=== PATIENT | female | born 1950 | race Caucasian/White ===

== ENCOUNTER 2017-07-30 08:16 | Emergency (ER) | payer OTHER ==
[~2017-07-30] VITALS: Ht 172.7 cm; Wt 80.0 kg
[~2017-07-30 08:16] MED LIST: ANAS1 PO; PAXI20TA26 PO
[2017-07-30 08:18] VITALS: BP 132/65; PULSE 89; RESP 17; TEMP 97.7; O2SAT 97
--- NOTE | 2017-07-30 08:41 | PD ---
HPI Chief Complaint: Abdominal Pain Time Seen by Provider: 08:40 Travel History International Travel<30 days: No Contact w/Intl Traveler<30days: No Traveled to known affect area: No History of Present Illness HPI 67-year-old female came to the emergency room with history of sudden onset of right sided chest pain going across her chest while she was in the waiting room to see an orthopedist for her left lower extremity pathologic fracture. Patient says this happened at around 7:40 AM and while she was sitting and waiting she suddenly got this dull chest pain sensation followed by intense perspiration and extreme weakness. This led to the staff in the office called 911. Patient says she never passed out. Her vital signs were stable on route. By the time she came to the emergency room she was soaking wet from the sweat but the chest pain had gone away. Patient says she's never had this kind of feeling before. She has history of breast cancer that has metastasized to the bones. He is getting daily chemotherapy that she takes in the form of a pill at home. There were blood test done and most of the results were back by the time I went to see her. Her CBC was within normal limits. Patient had gone to the restroom when I arrived in the room but then was coming out of there so I waited for her to get back to her room in the stretcher. During the short walk off maybe 30 steps she got short of breath and her color was pale. Upon hooking up to the monitor her heart rate was in 100s. Oxygen saturation was 94- 95%. This slowly started to improve as she was more restful on the stretcher. Patient says that she has been experiencing that for past couple days as well. She says that when she was walking she experienced the chest pain coming back but not as intense. [facility] Past Medical History Narrative Medical List of her past medical, surgical, social and family history is reviewed from the nursing note. Cancer: Yes (LEFT BREAST) Diabetes: No Glaucoma: Yes (ASHLEE.) Hepatitis: No Hiatal Hernia: No Hypertension: No Thyroid Disease: No Past Surgical History Abdominal Surgery: No Cardiac Surgery: No Ear Surgery: No Endocrine Surgery: No Eye Surgery: No Genitourinary Surgery: No Gynecologic Surgery: Yes (LAPAROSCOPY) Oral Surgery: Yes (EXTRACTIONS, T & A) Pacemaker: No Social History Alcohol Use: Yes (OCCAS) Tobacco Use: No Allergies-Medications (Allergen,Severity, Reaction): Coded Allergies: codeine (Verified Allergy, Severe, Rash, 07/30/17) Comments List of her allergies reviewed from the nursing note. Reported Meds & Prescriptions Reported Meds & Active Scripts Active Reported Dorzolamide Opth Drops (Dorzolamide HCl) 2% Soln 1 Drop EACH EYE TID Timoptic Opth Drops (Timolol Opth Drops) 0.25 % Soln 1 Drop EACH EYE BID Latanoprost Opth Drops (Latanoprost) 0.005% Drops 1 Drop EACH EYE HS Refrigerate until opened. Paxil (Paroxetine HCl) 10 Mg Tab 20 Mg PO DAILY Hydromorphone (Hydromorphone HCl) 2 Mg Tab 2 Mg PO BID PRN Letrozole 2.5 Mg Tab 1 Tab PO DAILY Ibrance (Palbociclib) 75 Mg Capsule 1 Tab PO DAILY Narrative Medication List of her home medications reviewed from the nursing note. Review of Systems Except as stated in HPI: all other systems reviewed are Neg Cardiovascular: Positive: Chest Pain or Discomfort Physical Exam Narrative GENERAL: Awake, alert, looks older than her age, moderate distress SKIN: Focused skin assessment warm/dry. Pale HEAD: Atraumatic. Normocephalic. EYES: Pupils equal and round. No scleral icterus. No injection or drainage. ENT: No nasal bleeding or discharge. Mucous membranes pink and moist. NECK: Trachea midline. No JVD. CARDIOVASCULAR: Regular rate and rhythm. No murmur appreciated. RESPIRATORY: No accessory muscle use. Clear to auscultation. Breath sounds equal bilaterally. GASTROINTESTINAL: Abdomen soft, non-tender, nondistended. Hepatic and splenic margins not palpable. MUSCULOSKELETAL: No obvious deformities. No clubbing. No cyanosis. No edema. NEUROLOGICAL: Awake and alert. No obvious cranial nerve deficits. Motor grossly within normal limits. Normal speech. PSYCHIATRIC: Appropriate mood and affect; insight and judgment normal. Data Data Last Documented VS Orders Orders Electrocardiogram (07/30/17 09:36) Complete Blood Count With Diff (07/30/17 09:36) Comprehensive Metabolic Panel (07/30/17 09:36) Iv Access Insert/Monitor (07/30/17 09:36) Blood Glucose (07/30/17 09:36) Ct Brain W/O Iv Contrast(Rout) (07/30/17 ) Troponin I (07/30/17 10:27) Chest, Single Ap (07/30/17 ) Labs Laboratory Tests Test 07/30/17 09:40 White Blood Count 4.2 TH/MM3 Red Blood Count 4.27 MIL/MM3 Hemoglobin 12.7 GM/DL Hematocrit 38.6 % Mean Corpuscular Volume 90.4 FL Mean Corpuscular Hemoglobin 29.7 PG Mean Corpuscular Hemoglobin Concent 32.9 % Red Cell Distribution Width 20.8 % Platelet Count 278 TH/MM3 Mean Platelet Volume 8.0 FL Neutrophils (%) (Auto) 67.9 % Lymphocytes (%) (Auto) 22.7 % Monocytes (%) (Auto) 3.1 % Eosinophils (%) (Auto) 4.1 % Basophils (%) (Auto) 2.2 % Neutrophils # (Auto) 2.8 TH/MM3 Lymphocytes # (Auto) 0.9 TH/MM3 Monocytes # (Auto) 0.1 TH/MM3 Eosinophils # (Auto) 0.2 TH/MM3 Basophils # (Auto) 0.1 TH/MM3 CBC Comment DIFF FINAL Differential Comment Blood Urea Nitrogen 19 MG/DL Creatinine 0.90 MG/DL Random Glucose 105 MG/DL Total Protein 7.5 GM/DL Albumin 3.5 GM/DL Calcium Level 8.7 MG/DL Alkaline Phosphatase 284 U/L Aspartate Amino Transf (AST/SGOT) 97 U/L Alanine Aminotransferase (ALT/SGPT) 74 U/L Total Bilirubin 0.4 MG/DL Sodium Level 140 MEQ/L Potassium Level 3.8 MEQ/L Chloride Level 111 MEQ/L Carbon Dioxide Level 23.2 MEQ/L Anion Gap 6 MEQ/L Estimat Glomerular Filtration Rate 62 ML/MIN Troponin I LESS THAN 0.02 NG/ML MDM Medical Decision Making Medical Screen Exam Complete: Yes Emergency Medical Condition: Yes Medical Record Reviewed: Yes Interpretation(s) Twelve-lead EKG was reviewed by me. Normal sinus rhythm, normal axis, nonspecific ST-T wave changes. Heart rate of 89 bpm. Differential Diagnosis ACS, non-STEMI, unstable angina, PE, CHF, pneumonia Narrative Course 12 PM chemistry result is back and within acceptable limits grossly. I explained my concerns to the patient may need a cardiac until proven otherwise. In my opinion patient may have been having stable angina, malignant arrhythmias like V. tach or even a PE. I explained to her that she would require to be admitted so that she can be seen by cardiology. 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 I explained to her that given her symptoms this would be risky and if she wants to leave it would be against medical advise. She understands the risks including . Patient is in full capacity to make decisions for herself and has chosen to go home. He will sign against medical advise. Procedures EKG Prior to Arrival: No Diagnosis Primary Impression: Chest pain Qualified Codes: R07.9 - Chest pain, unspecified Additional Impressions: Weakness Shortness of breath Disposition: 07 AGAINST MEDICAL ADVICE Fátima Chavez MD Jul 30, 2017 08:41
[2017-07-30] MEDS ORDERED: LETR2.5T PO (08:46)
[2017-07-30] MEDS ORDERED: PALB75CA PO (08:46)
[2017-07-30] MEDS ORDERED: LATA0.002 EACH EYE (08:50)
[2017-07-30] MEDS ORDERED: DORZ2SOL EACH EYE (08:50)
[2017-07-30] MEDS ORDERED: PAXI10TA2 PO (08:50)
[2017-07-30] MEDS ORDERED: TIMO0.255 EACH EYE (08:50)
[2017-07-30] MEDS ORDERED: HYDR2TAB PO (08:50)
[2017-07-30 10:04] LABS: AUTOMATED NEUTROPHIL # 2.8 TH/MM3 (1.8-7.7); BASOPHIL # 0.1 TH/MM3 (0-0.2); BASOPHIL % 2.2 % (0.0-2.0); EOSINOPHIL # 0.2 TH/MM3 (0-0.4); EOSINOPHIL % 4.1 % (0.0-4.0); HEMATOCRIT 38.6 % (35.0-46.0); HEMO FLAGS DIFF FINAL; LYMPH % 22.7 % (9.0-44.0); LYMPHOCYTE # 0.9 TH/MM3 (1.0-4.8); MEAN CELL VOLUME 90.4 FL (80.0-100.0); MEAN CORPUSCULAR HEMOGLOBIN 29.7 PG (27.0-34.0); MEAN CORPUSCULAR HGB CONC 32.9 % (32.0-36.0); MONO % 3.1 % (0.0-8.0); NEUT % 67.9 % (16.0-70.0); PLATELET COUNT 278 TH/MM3 (150-450); RED BLOOD COUNT 4.27 MIL/MM3 (4.00-5.30); RED CELL DISTRIBUTION WIDTH 20.8 % (11.6-17.2); WHITE BLOOD COUNT 4.2 TH/MM3 (4.0-11.0)
[2017-07-30 10:28] LABS: ALKALINE PHOSPHATASE 284 U/L (45-117); TOTAL BILIRUBIN ADULT 0.4 MG/DL (0.2-1.0)
[2017-07-30 10:37] LABS: ALT (GPT) 74 U/L (10-53); ANION GAP 6 MEQ/L (5-15); AST (GOT) 97 U/L (15-37); BICARBONATE 23.2 MEQ/L (21.0-32.0); BLOOD UREA NITROGEN 19 MG/DL (7-18); CHLORIDE 111 MEQ/L (98-107); GLOMERULAR FILTRATION RATE 62 ML/MIN (>89); POTASSIUM 3.8 MEQ/L (3.5-5.1); SODIUM (NA) 140 MEQ/L (136-145)
--- NOTE | 2017-07-30 10:59 | RADRPT ---
EXAM DATE/TIME: 07/30/2017 10:32 [facility] COMPARISON: No previous studies available for comparison. INDICATIONS : Sudden onset of nausea and vomiting. RADIATION DOSE: 56.35 CTDIvol (mGy) MEDICAL HISTORY : Carcinoma, breast. Metastatic, bone. SURGICAL HISTORY : Mastectomy, bilateral. ENCOUNTER: Initial ACUITY: 1 day PAIN SCALE: 0/10 LOCATION: cranial TECHNIQUE: Multiple contiguous axial images were obtained of the head. Using automated exposure control and adj ustment of the mA and/or kV according to patient size, radiation dose was kept as low as reasonably a chievable to obtain optimal diagnostic quality images. DICOM format image data is available electro nically for review and comparison. FINDINGS: CEREBRUM: The ventricles are normal for age. No evidence of midline shift, mass lesion, hemorrhage or acute in farction. Incidental finding of a cavum septum Verge. No extra-axial fluid collections are seen. POSTERIOR FOSSA: The cerebellum and brainstem are intact. The 4th ventricle is midline. The cerebellopontine angle i s unremarkable. EXTRACRANIAL: The visualized portion of the orbits is intact. SKULL: The calvaria is intact. No evidence of skull fracture. CONCLUSION: Normal examination for a patient of this age. Aniket Pollock MD on July 30, 2017 at 10:56 Board Certified Radiologist. This report was verified electronically.
[2017-07-30 11:10] VITALS: BP 112/64; PULSE 89; RESP 16; O2SAT 97
--- NOTE | 2017-07-30 11:34 | RADRPT ---
EXAM DATE/TIME: 07/30/2017 11:14 [facility] COMPARISON: No previous studies available for comparison. INDICATIONS : Went to orthopedic doctor today and started sweating real bad. MEDICAL HISTORY : metastatic disease per friend SURGICAL HISTORY : breast removed 2007, breast cancer info provided by friend ENCOUNTER: Initial ACUITY: 1 day PAIN SCORE: 0/10 LOCATION: Bilateral chest FINDINGS: A single view of the chest demonstrates the lungs to be symmetrically aerated without evidence of mas s, infiltrate or effusion. Lungs are hyperaerated bilaterally. There are some chronic interstitial ch anges bilaterally. The cardiomediastinal contours are unremarkable. Osseous structures are intact. T here are degenerative changes of the thoracic spine. CONCLUSION: No acute pulmonary infiltrates. Aniket Pollock MD on July 30, 2017 at 11:31 Board Certified Radiologist. This report was verified electronically.
--- NOTE | 2017-07-31 22:03 | EKG ---
Date Performed: 07/30/2017 Time Performed: 09:54:20 PTAGE: 67 years EKG: Sinus rhythm NORMAL ECG NO PREVIOUS TRACING DOCTOR: Avery Peterson Interpretating Date/Time 07/31/2017 21:45:05
== END 2017-07-30 11:30 | disposition left against medical advice (07) ==
LOC: NEPE 08:16
DX: R07.9 Chest pain, unspecified (principal); R53.1 Weakness; R06.02 Shortness of breath; R61 Generalized hyperhidrosis; R23.1 Pallor; R00.0 Tachycardia, unspecified; Z85.3 Personal history of malignant neoplasm of breast; Z86.69 Personal history of other diseases of the nervous system and sense organs; Z53.29 Procedure and treatment not carried out because of patient's decision for other reasons
CPT/HCPCS: 70450; 71010; 80053; 84484; 85025; 93005

== ENCOUNTER 2018-12-07 17:28 | Observation (INO) ==
[2018-12-07 19:07] LABS: Baso % (Auto) 0.8 % (0.0-2.0); Eos % (Auto) 2.1 % (0.0-4.0); Hematocrit 25.7 % (35.0-46.0); Hemoglobin 8.5 gm/dL (11.6-15.3); Lymph # (Auto) 0.8 th/mm3 (1.0-4.8); Lymph % (Auto) 39.4 % (9.0-44.0); Mean Corpuscular Hemoglobin 29.9 pg (27.0-34.0); Mean Corpuscular Volume 90.5 fL (80.0-100.0); Mono # (Auto) 0.2 th/mm3 (0.0-0.9); Mono % (Auto) 7.4 % (0.0-8.0); Neut # (Auto) 1.1 th/mm3 (1.8-7.7); Neut % (Auto) 50.3 % (16.0-70.0); Platelet Count 157 th/mm3 (150-450); Red Blood Count 2.84 mil/mm3 (4.00-5.30); Red Cell Distribution Width 15.5 % (11.6-17.2); White Blood Count 2.1 th/mm3 (4.0-11.0)
[2018-12-07 19:15] LABS: Chloride 107 meq/L (98-107); Sodium 139 meq/L (136-145)
--- NOTE | 2018-12-07 19:16 | XR ---
EXAM DATE: 12/07/2018 7:13 PM EST AGE/SEX: 68 years / Female INDICATIONS: AMS. Patient states she has metastatic breast cancer. CLINICAL DATA: This is the patient's initial encounter. Patient reports that signs and symptoms have been present for 1 day and indicates a pain score of 0/10. MEDICAL/SURGICAL HISTORY: . metastatic disease per friend SURGICAL HISTORY : breast removed 200 8, breast cancer info provided by friend . COMPARISON: No prior exams available for comparison. FINDINGS: Sclerotic-appearing bony metastases are seen throughout the axial and appendicular skeleton consisten t with the history. The heart is enlarged Mild interstitial edema is present. Minimal angulation is present at T8-T9 of uncertain significance. CONCLUSION: Apparent metastatic breast cancer with widespread bony metastases as patient states Mild compensated cardiomegaly Electronically signed by: Josue Daniel MD Board Certified Radiologist 12/07/2018 7:15 PM EST
[2018-12-07 19:18] LABS: Calcium 8.1 mg/dL (8.5-10.1)
--- NOTE | 2018-12-07 19:18 | ED ---
HPI General Chief Complaint: Altered Mental Status Stated Complaint: AMS Time Seen by Provider: 12/07/18 17:56 Source: patient History of Present Illness HPI narrative: 68-year-old female with a history of metastatic breast cancer stage IV presents to the emergency room with altered mental status for the last 2 days. Patient has started oral chemotherapy. Patient noticed slurring of speech general, generalized weakness, nausea,and muscle aches. Patient denies fever, chills, vomiting, diarrhea, abdominal pain, shortness of breath or chest pain. Patient does not recall the name of the chemotherapy medications. Related Data Home Medications Medication Instructions Recorded Confirmed Chemo Med 2 tab PO BID 12/07/18 diazepam [Valium] 10 mg PO HS 12/07/18 12/07/18 hydromorphone 2 mg PO Q4-6H PRN 12/07/18 12/07/18 ibuprofen [Advil] 200 mg PO HS 12/07/18 12/07/18 Allergies Allergy/AdvReac Type Severity Reaction Status Date / Time codeine Allergy Severe Rash Verified 12/07/18 17:41 Review of Systems ROS: all other systems reviewed are negative Constitutional Reports body ache(s), Reports malaise, Reports poor appetite and Reports weight loss Neurologic Reports weakness PMFSH Medical History Medical History Anxiety (Acute) Arm fracture, left (Acute) Metastatic breast cancer (Acute) Surgical History Surgical History H/O bilateral mastectomy (Acute) Hx of tonsillectomy (Acute) Social History Social History Substance History: No History of Abuse Smoking Status: Former smoker How Often Do You Have a Drink Containing Alcohol: Never Recent Out of Country Travel within the Last 8 Weeks: No Immunization History Tetanus Immunization: Unsure Exam Narrative Exam Narrative: GENERAL: Patient is alert and oriented -3 SKIN: Focused skin assessment warm/dry. HEAD: Atraumatic. Normocephalic. EYES: Pupils equal and round. No scleral icterus. No injection or drainage. ENT: No nasal bleeding or discharge. Mucous membranes pink and moist. NECK: Trachea midline. No JVD. CARDIOVASCULAR: Regular rate and rhythm. No murmur appreciated. RESPIRATORY: No accessory muscle use. Clear to auscultation. Breath sounds equal bilaterally. GASTROINTESTINAL: Abdomen soft, non-tender, nondistended. Hepatic and splenic margins not palpable. MUSCULOSKELETAL: No obvious deformities. No clubbing. No cyanosis. No edema. Generalized bone tenderness to palpation NEUROLOGICAL: Awake and alert. No obvious cranial nerve deficits. Motor grossly within normal limits. Normal speech. PSYCHIATRIC: Appropriate mood and affect; insight and judgment normal. Course Initial Documented Vital Signs Temperature 98.8 F 12/07/18 17:36 Pulse Rate 84 12/07/18 17:36 Respiratory Rate 18 12/07/18 17:36 Blood Pressure 131/60 12/07/18 17:36 Pulse Oximetry 98 12/07/18 17:36 Last Documented Vital Signs Temperature 98.8 F 12/07/18 17:36 Pulse Rate 84 12/07/18 17:36 Respiratory Rate 18 12/07/18 17:36 Blood Pressure 131/60 12/07/18 17:36 Pulse Oximetry 98 12/07/18 17:36 Sign Out Sign Out Data: Patient Sign Out occurred on 12/07/18 at 19:20. Patient's care was discussed, and care was transferred from Johnie Samano to William Avery. Sign Out Comment: Please follow-up labs, chest x-ray, CAT scan results Last updated by Johnie Samano at 12/07/18 19:18 Post-Handoff Eval: Patient has leukopenia 2.1 anemia of 8.5/25.7 both of these are decreased from the previous July 2017 laboratory value of a WBC of 4.2 and an H&H of 12/38 No left shift, normal platelet count Elect lites are within normal limits Normal kidney and liver functions Normal cardiac enzyme , Mild compensated cardiomegaly. Chest x-ray read by radiologist shows apparent metastatic breast cancer with widespread bony metastasis CT head read as negative by radiology, MRI with contrast could be used to exclude subtle metastasis versus carcinoma related meningitis currently awaiting ammonia and ua results....patient is admitted as obs for MRI and further studies to evaluate her recent change in sensorium. pcp is aniadasama and sorathia is heme-onc Medical Decision Making MDM Narrative Medical Screen Exam Complete: Yes Emergency Medical Condition: Yes Lab Data Lab results reviewed: Yes I reviewed the patient's lab results. Result diagrams: 12/07/18 18:20 12/07/18 18:20 Lab Results 02/26/19 02/26/19 Range/Units 18:20 18:20 CBC w Diff Auto diff final WBC 2.1 L (4.0-11.0) th/mm3 RBC 2.84 L (4.00-5.30) mil/mm3 Hgb 8.5 L (11.6-15.3) gm/dL Hct 25.7 L (35.0-46.0) % MCV 90.5 (80.0-100.0) fL MCH 29.9 (27.0-34.0) pg MCHC 33.0 (32.0-36.0) % RDW 15.5 (11.6-17.2) % Plt Count 157 (150-450) th/mm3 MPV 7.0 (7.0-11.0) fL Neut % (Auto) 50.3 (16.0-70.0) % Lymph % (Auto) 39.4 (9.0-44.0) % [place] % (Auto) 7.4 (0.0-8.0) % Eos % (Auto) 2.1 (0.0-4.0) % Baso % (Auto) 0.8 (0.0-2.0) % Neut # (Auto) 1.1 L (1.8-7.7) th/mm3 Lymph # (Auto) 0.8 L (1.0-4.8) th/mm3 [place] # (Auto) 0.2 (0.0-0.9) th/mm3 Eos # (Auto) 0.0 (0.0-0.4) th/mm3 Baso # (Auto) 0.0 (0.0-0.2) th/mm3 WBC Differential . Differential Comment . Sodium 139 (136-145) meq/L Potassium 4.0 (3.5-5.1) meq/L Chloride 107 (98-107) meq/L Carbon Dioxide 27.2 (21.0-32.0) meq/L Anion Gap 5 (5-15) meq/L BUN 19 H (7-18) mg/dL Creatinine 0.96 (0.50-1.00) mg/dL Estimated GFR 57 L (>89) mL/min Random Glucose 109 H (74-106) mg/dL Calcium 8.1 L (8.5-10.1) mg/dL Magnesium 2.5 (1.5-2.5) mg/dL Total Bilirubin 0.3 (0.2-1.0) mg/dL AST 48 H (15-37) U/L ALT 15 (10-53) U/L Alkaline Phosphatase 117 (45-117) U/L Troponin I Less than 0.02 L (0.02-0.05) ng/mL Total Protein 6.9 (6.4-8.2) g/dL Albumin 3.6 (3.4-5.0) g/dL Imaging Data Attestation: I personally reviewed and interpreted this imaging study as follows : Radiologist's impression: Chest X-Ray 12/07/18 18:36 CONCLUSION: Apparent metastatic breast cancer with widespread bony metastases as patient states Mild compensated cardiomegaly Head CT 12/07/18 18:36 CONCLUSION: 1. Negative, chest x-ray shows widespread bony metastatic disease 2. MRI with contrast could be used to exclude subtle metastasis and carcinomas meningitis . . Discharge Plan Discharge Disposition Patient Disposition: ED Admit(ED Internal Use Only) Discharge Condition Condition: Fair Discharge Order Discharge Orders: ED Use Only Admit Order (Routine); Ordered 12/07/18 Ordered By: William Avery Discharge Details Diagnosis: Altered mental status Physicians Team ED Provider: William Avery Primary Care Provider: UNKNOWN, Rxs /Orders / Referrals /Forms Prescriptions: No Action hydromorphone 2 mg Tablet 2 mg PO Q4-6H PRN (Reason: Pain) RF: 0 ibuprofen [Advil] 100 mg Tablet 200 mg PO HS RF: 0 diazepam [Valium] 10 mg Tablet 10 mg PO HS RF: 0 Chemo Med 2 tab PO BID RF: 0 Status ED Status: With Doctor
[2018-12-07 19:19] LABS: Albumin 3.6 g/dL (3.4-5.0); Anion Gap 5 meq/L (5-15); Blood Urea Nitrogen 19 mg/dL (7-18); Carbon Dioxide 27.2 meq/L (21.0-32.0); Glucose,Random 109 mg/dL (74-106); Magnesium 2.5 mg/dL (1.5-2.5)
--- NOTE | 2018-12-07 19:19 | CT ---
EXAM DATE: 12/07/2018 7:16 PM EST AGE/SEX: 68 years / Female INDICATIONS: Altered mental status. Weakness. Confusion. CLINICAL DATA: This is the patient's initial encounter. Patient reports that signs and symptoms have been present for 1 day and indicates a pain score of 0/10. MEDICAL/SURGICAL HISTORY: Carcinoma, breast. Mastectomy, bilateral. Tonsillectomy. RADIATION DOSE: 59.47 CTDI (mGy) COMPARISON: [facility], CHEST 1V SINGLE AP, 12/07/2018. . TECHNIQUE: CT of the head without contrast. Using automated exposure control and adjustment of the mA and/or kV according to patient size, radiation dose was kept as low as reasonably achievable to ob tain optimal diagnostic quality images. DICOM format image data is available electronically for revi ew and comparison. FINDINGS: Cerebrum: The ventricles are normal for age. No evidence of midline shift, mass lesion, hemorrhage or acute infarction. No extraaxial fluid collections are seen. Posterior Fossa: The cerebellum and brainstem are intact. The 4th ventricle is midline. The cerebe llopontine angle is unremarkable. Extracranial: The visualized portion of the orbits is intact. Skull: The calvaria is intact. No evidence of skull fracture. CONCLUSION: 1. Negative, chest x-ray shows widespread bony metastatic disease 2. MRI with contrast could be used to exclude subtle metastasis and carcinomas meningitis . . Electronically signed by: Josue Daniel MD Board Certified Radiologist 12/07/2018 7:18 PM EST
[2018-12-07 19:22] LABS: Alanine Aminotransferase 15 U/L (10-53); Aspartate Aminotransferase 48 U/L (15-37); Glomerular Filtration Rate 57 mL/min (>89)
[2018-12-07 19:24] LABS: Total Protein 6.9 g/dL (6.4-8.2)
[2018-12-07 19:25] LABS: Alkaline Phosphatase 117 U/L (45-117)
[2018-12-07] MEDS ORDERED: Acetaminophen 325 MG Tablet PO PRN (20:07)
[2018-12-07] MEDS ORDERED: Bisacodyl 10 MG Supp RECTAL PRN (20:07)
[2018-12-07 20:55] LABS: Bilirubin,Urine Negative (Negative); Clarity,Urine Clear (Clear); Color,Urine Yellow (Yellw/Straw); Glucose,Urine (UA) Negative (Negative); Leukocyte Esterase,Urine Small (Negative); Nitrite,Urine Negative (Negative); Urobilinogen,Urine 0.2 mg/dL (Less than 2)
[2018-12-07 21:02] LABS: RBC,Urine 0-3 /hpf (0-3); Squamous Epithelial Cell,Urine 0-5 /hpf (0-5)
[2018-12-07] MEDS: Sod Chloride 0.9% Inj 1,000 ML IV.CONT SCH (21:52)
[2018-12-08 08:21] LABS: Baso % (Auto) 1.6 % (0.0-2.0); Eos # (Auto) 0.1 th/mm3 (0.0-0.4); Eos % (Auto) 2.4 % (0.0-4.0); Hematocrit 27.8 % (35.0-46.0); Hemoglobin 9.2 gm/dL (11.6-15.3); Lymph # (Auto) 0.8 th/mm3 (1.0-4.8); Lymph % (Auto) 37.5 % (9.0-44.0); Mean Corpuscular Hemoglobin 30.2 pg (27.0-34.0); Mean Corpuscular Volume 91.6 fL (80.0-100.0); Mean Platelet Volume 7.2 fL (7.0-11.0); Mono # (Auto) 0.1 th/mm3 (0.0-0.9); Mono % (Auto) 6.4 % (0.0-8.0); Neut # (Auto) 1.2 th/mm3 (1.8-7.7); Neut % (Auto) 52.1 % (16.0-70.0); Platelet Count 173 th/mm3 (150-450); Red Blood Count 3.04 mil/mm3 (4.00-5.30); Red Cell Distribution Width 15.2 % (11.6-17.2); White Blood Count 2.2 th/mm3 (4.0-11.0)
[2018-12-08 08:35] LABS: Chloride 109 meq/L (98-107); Potassium 4.1 meq/L (3.5-5.1); Sodium 141 meq/L (136-145)
[2018-12-08 08:38] LABS: Albumin 3.7 g/dL (3.4-5.0); Anion Gap 5 meq/L (5-15); Blood Urea Nitrogen 16 mg/dL (7-18); Calcium 8.2 mg/dL (8.5-10.1); Carbon Dioxide 27.3 meq/L (21.0-32.0); Glucose,Random 91 mg/dL (74-106)
[2018-12-08 08:41] LABS: Alanine Aminotransferase 12 U/L (10-53); Aspartate Aminotransferase 50 U/L (15-37); Glomerular Filtration Rate 64 mL/min (>89)
[2018-12-08 08:43] LABS: Total Protein 7.1 g/dL (6.4-8.2)
[2018-12-08 08:44] LABS: Alkaline Phosphatase 92 U/L (45-117)
[2018-12-08] MEDS: Sod Chloride 0.9% Inj 1,000 ML IV.CONT SCH (11:28)
[2018-12-08 11:36] VITALS: RESP 18
[2018-12-08] MEDS ORDERED: Gadobutrol PF 7.5 MMOL/7.5 ML Vial (for RAD) IV.SIG ONE (11:58)
--- NOTE | 2018-12-08 12:37 | MR ---
EXAM DATE: 12/08/2018 12:09 PM EST AGE/SEX: 68 years / Female INDICATIONS: Metastatic disease. Dizziness and confusion. CLINICAL DATA: This is the patient's initial encounter. Patient reports that signs and symptoms have been present for 1 day and indicates a pain score of 0/10. MEDICAL/SURGICAL HISTORY: Carcinoma, breast. Mastectomy, bilateral. Tonsillectomy. COMPARISON: [facility], CT HEAD W/O CONTRAST, 12/07/2018. . TECHNIQUE: Multiplanar, multisequence examination of the brain was performed without and with 7.5 ml Gadavist (gadobutrol) contrast as a single exam dose. FINDINGS: Cerebrum: The ventricles are normal for age. No evidence of midline shift, mass lesion, hemorrhage or acute infarction. No extraaxial fluid collections are seen. The pituitary gland and suprasellar cistern are normal in configuration. White Matter: No significant signal abnormalities are seen in the white matter. Posterior Fossa: The cerebellum and brainstem are intact. The 4th ventricle is midline. The cerebel lopontine angle is unremarkable. The cerebellar tonsils are normal in position. Diffusion Imaging: No focal areas of restricted diffusion are seen. No evidence of acute infarction . Extracranial: The visualized portions of the orbits and paranasal sinuses are unremarkable. Post Contrast: A few scattered calvarial and meningeal based areas of enhancement are seen bilateral ly, right greater than left. The largest of these is seen in the anterior high right parietal convexi ty measuring 1.1 cm in diameter. CONCLUSION: 1. Multiple enhancing calvarial-based lesions in the skull are concerning for osseous metastasis. Th ere may be some meningeal extension on the right. 2. No evidence of metastatic disease to the brain, however. Electronically signed by: Moshe Graham MD Board Certified Radiologist 12/08/2018 12:36 PM EST
[2018-12-08 12:55] VITALS: BP 99/64; PULSE 91; TEMP 96.2; O2SAT 97
--- NOTE | 2018-12-08 13:17 | P.HPIM ---
History of Present Illness Primary Care Physician: UNKNOWN History of Present Illness: 68-year-old white female was admitted for possible strokelike symptoms. Patient was in her USOH until about 2-3 weeks ago when she began having intermittent slurring of her speech and balance issues. This has been of a gradual onset. Has been recently taking His capecitabine for breast cancer. Being yesterday the patient got a follow-up phone call from her pharmacy/pharm company asking her about her overall clinical status. Upon hearing the issues of speech and balance disturbances she was advised to proceed to the ER. Otherwise the patient says she feels fine and is eager to go home as soon as possible. In the ED CT of the head was negative for acute findings. Blood work from revealed unremarkable chemistry, CBC was also unremarkable for any acute changes. Chest x-ray which I independently reviewed was negative for any acute infiltrates. Radiology had recommended an MRI with contrast to differentiate between carcinomatosis and subtle metastasis. Vital signs stable. Review of Systems Review of Systems: all other systems reviewed are negative [facility]LY [facility] Medical History Medical History Anxiety (Acute) Arm fracture, left (Acute) Metastatic breast cancer (Acute) Surgical History Surgical History H/O bilateral mastectomy (Acute) Hx of tonsillectomy (Acute) Family History Family History Other Pancreatic cancer Social History Social History Substance History: No History of Abuse Second Hand Smoke Exposure: No Smoking Status: Never smoker How Often Do You Have a Drink Containing Alcohol: Never Immunization History Tetanus Immunization: Unsure Medications and Allergies Allergies Allergy/AdvReac Type Severity Reaction Status Date / Time codeine Allergy Severe Rash Verified 12/07/18 17:41 Home Medications Medication Instructions Recorded Confirmed Type capecitabine 1,000 mg PO Q12H 12/07/18 12/07/18 History diazepam [Valium] 10 mg PO HS 12/07/18 12/07/18 History hydromorphone 2 mg PO Q4-6H PRN 12/07/18 12/07/18 History ibuprofen [Advil] 200 mg PO HS 12/07/18 12/07/18 History paroxetine HCl 20 mg PO DAILY 12/07/18 12/07/18 History Active Medications: Active Medications Acetaminophen (Tylenol) 650 mg PO Q4H PRN PRN Reason: Temp > 100.4 Al Hydroxide/Mg Hydroxide (Milk Of Magnesia Liq) 30 ml PO Q12H PRN PRN Reason: Mild Constipation Bisacodyl (Dulcolax Supp) 10 mg RECTAL DAILY PRN PRN Reason: SEVERE CONSITIPATION Sodium Chloride (Ns Inj) 1,000 mls @ 75 mls/hr IV.CONT .[id number] [facility] Last Infusion: 12/08/18 11:28 Dose: Infused Lactulose (Lactulose Liq) 30 ml PO DAILY PRN PRN Reason: SEVERE CONSITIPATION Ondansetron HCl (Zofran Inj) 4 mg IV.PUSH Q6H PRN PRN Reason: NAUSEA OR VOMITING Sennosides (Senokot) 17.2 mg PO Q12H PRN PRN Reason: Moderate Constipation Sodium Chloride (Ns Flush) 2 ml IV.FLUSH BID [facility] Last Admin: 12/08/18 11:28 Dose: 2 ml Sodium Chloride (Ns Flush) 2 ml IV.FLUSH PRN PRN PRN Reason: FLUSH AFTER USING IV ACCESS Physical Exam Vital signs: Vital Signs 12/07/18 17:36 12/07/18 20:19 12/07/18 21:24 Temperature 98.8 F 98.6 F Pulse Rate 84 80 80 Respiratory Rate 18 18 Blood Pressure 131/60 95/60 L Pulse Oximetry 98 98 96 12/08/18 00:00 12/08/18 08:00 12/08/18 10:26 Temperature 96.7 F L 96.7 F L Pulse Rate 68 79 Respiratory Rate 20 20 18 Blood Pressure 104/64 109/70 Pulse Oximetry 97 99 12/08/18 12:00 Temperature 96.2 F L Pulse Rate 91 H Respiratory Rate 18 Blood Pressure 99/64 L Pulse Oximetry 97 Intake & Output 12/07/18 12/08/18 12/08/18 18:59 06:59 18:59 Intake Total 5 / 5 900 / 900 Output Total 300 / 300 Balance -295 / -295 900 / 900 Weight 81.193 kg 85.2 kg Intake: IV 5 / 5 900 / 900 NS Inj 1,000 ML @ 75 mls/hr IV. 900 / 900 CONT .[id number] GIANNI Rx#: [id number] Output: Urine 300 / 300 Other: # Voids 4 Weight On Admission 80.1 kg Narrative: VS: afebrile GENERAL: Awake alert, no acute distress SKIN: Warm and dry. EYES: Pupils equal and round. No scleral icterus. No injection or drainage. ENT: No nasal bleeding or discharge. Mucous membranes pink and moist. CARDIOVASCULAR: Regular rate and rhythm. no murmurs RESPIRATORY: No accessory muscle use. Clear to auscultation. Breath sounds equal bilaterally. GASTROINTESTINAL: Abdomen soft, non-tender, nondistended. Extremities: No clubbing, cyanosis, or edema. No obvious deformities. MUSCULOSKELETAL: grossly intact ROM with 5/5 strength in upper and lower extremities proximally including hip flexor strength bilaterally and fist engineering programmer; adequate muscle bulk and tone for age and habitus NEUROLOGICAL: Awake and alert. No obvious cranial nerve deficits. No facial droop nor slurred speech noted. PSYCHIATRIC: Appropriate mood and affect; insight and judgment normal. Eating at the bedside, friend at the bedside Results Labs CBC & Chem 7: 12/08/18 07:30 12/08/18 07:30 Imaging Impressions Chest X-Ray 12/07/18 18:36 CONCLUSION: Apparent metastatic breast cancer with widespread bony metastases as patient states Mild compensated cardiomegaly Head CT 12/07/18 18:36 CONCLUSION: 1. Negative, chest x-ray shows widespread bony metastatic disease 2. MRI with contrast could be used to exclude subtle metastasis and carcinomas meningitis . . Head MRI 12/08/18 00:00 CONCLUSION: 1. Multiple enhancing calvarial-based lesions in the skull are concerning for osseous metastasis. There may be some meningeal extension on the right. 2. No evidence of metastatic disease to the brain, however. Caprini VTE Risk Assessment Caprini VTE Risk Assessment: Moderate/High Risk (score >= 2) Caprini Risk Assessment Model: Point Value = 1 Point Value = 2 Point Value = 3 Point Value = 5 Age 41-60 Minor surgery BMI > 25 kg/m2 Swollen legs Varicose veins or History of unexplained or recurrent spontaneous Oral contraceptives or hormone replacement Sepsis (< 1 month) Serious lung disease, including pneumonia (< 1 month) Abnormal pulmonary function Acute myocardial infarction Congestive heart failure (< 1 month) History of inflammatory bowel disease Medical patient at bed rest Age 61-74 Arthroscopic surgery Major open surgery (> 45 min) Laparoscopic surgery (> 45 min) Malignancy Confined to bed (> 72 hours) Immobilizing plaster cast Central venous access Age >= 75 History of VTE Family history of VTE Factor V Leiden Prothrombin [id number] Lupus anticoagulant Anticardiolipin antibodies Elevated serum homocysteine Heparin-induced thrombocytopenia Other congenital or acquired thrombophilia Stroke (< 1 month) Elective arthroplasty Hip, pelvis, or leg fracture Acute spinal cord injury (< 1 month) Prophylaxis Regimen: Total Risk Factor Score Risk Level Prophylaxis Regimen 0-1 Low Early ambulation 2 Moderate Order ONE of the following: *Sequential Compression Device (SCD) *Heparin 5000 units SQ BID 3-4 Higher Order ONE of the following medications: *Heparin 5000 units SQ TID *Enoxaparin/Lovenox 40 mg SQ daily (WT < 150 kg, CrCl > 30 mL/min) *Enoxaparin/Lovenox 30 mg SQ daily (WT < 150 kg, CrCl > 10-29 mL/min) *Enoxaparin/Lovenox 30 mg SQ BID (WT < 150 kg, CrCl > 30 mL/min) AND/OR *Sequential Compression Device (SCD) 5 or more Highest Order ONE of the following medications: *Heparin 5000 units SQ TID (Preferred with Epidurals) *Enoxaparin/Lovenox 40 mg SQ daily (WT < 150 kg, CrCl > 30 mL/min) *Enoxaparin/Lovenox 30 mg SQ daily (WT < 150 kg, CrCl > 10-29 mL/min) *Enoxaparin/Lovenox 30 mg SQ BID (WT < 150 kg, CrCl > 30 mL/min) AND *Sequential Compression Device (SCD) Assessment and Plan Plan 68-year-old white female who was admitted for possible strokelike symptoms Subacute strokelike symptoms w/ no + clinical findings at this time CT head was initially concerning for bony metastases, however MRI does not show any new lesions per oncology No stroke found, clinically does not have any acute stroke symptoms either Metastatic breast cancer Follow-up with oncology outpatient, continue home meds Patient is met maximal benefit from hospitalization and is clinically stable for discharge. H&P: Quality VTE Deep Vein Thrombosis/Pulmonary Embolism Present on Admission: No
--- NOTE | 2018-12-08 21:53 | ECG ---
Date Performed: 12/07/2018 Time Performed: 18:48:48 PTAGE: 68 years EKG: Sinus rhythm NORMAL ECG PREVIOUS TRACING : 07/30/2017 09.54 Since the previous tracing, no significant change noted DOCTOR: Avery Peterson Interpretating Date/Time 12/08/2018 21:52:38
--- NOTE | 2018-12-09 00:17 | MB ---
cc: Colton Murillo MD DATE: 12/08/2018 REASON FOR CONSULTATION: Consult requested by hospitalist for evaluation of metastatic breast cancer. HISTORY OF PRESENT ILLNESS: Zohra is a pleasant 68-year-old female. She has extensive metastatic disease to the bone from breast cancer. She had been treated with multiple lines of treatment. Currently, she is on Xeloda chemotherapy. The patient received a call from [facility] about followup on Xeloda. The person from [facility] advised the patient that she should go to the emergency room as she was having side effects. When she came to the emergency room, this patient was found to be confused. The patient had a CAT scan of the brain, which was reported to be negative. However, subtle metastatic disease cannot be ruled out. Therefore, MRI of the brain was recommended. I have been asked to see the patient for further evaluation. The patient states that now she is feeling better, and she wants to go home. She does not want to stay in the hospital. She only has a red spot on her knuckle in the right hand. She does not have any hand-foot syndrome, which is one of the common side effects from capecitabine. The patient is complaining of weakness, tiredness, and fatigue. She is awake, alert x3. She is dressed up and ready to be discharged to home. PAST MEDICAL HISTORY: Anxiety disorder, breast cancer which was diagnosed in 05/2008, depression, glaucoma. PAST SURGICAL HISTORY: Colonoscopy, breast biopsy, left eye cataract, [id number], bilateral mastectomy. ALLERGIES: CODEINE AND MORPHINE. MEDICATIONS: Please see EMR. FAMILY HISTORY: She does not have any sisters or any children. SOCIAL HISTORY: The patient is . She is a retired schoolteacher. She does not smoke cigarettes. PHYSICAL EXAMINATION: GENERAL: She is a well-developed, elderly white female, in no apparent distress. VITAL SIGNS: Temperature 96.2, heart rate is 91, blood pressure 99/64. HEENT: PERRLA. EOMI, anicteric. No oral lesions noted. NECK: No lymphadenopathy noted. LUNGS: Clear. No wheezing, rhonchi or rales. CARDIOVASCULAR: Regular rate and rhythm. ABDOMEN: Soft, nontender. No hepatosplenomegaly. EXTREMITIES: No pedal edema. NEUROLOGIC: Awake, alert, oriented x3. SKIN: No significant lesions noted. ASSESSMENT: 1. Breast cancer with extensive bone metastasis. 2. No evidence of brain metastasis. PLAN: I have reviewed her available records, and I have discussed with the patient regarding CAT scan of the brain and MRI of the brain findings. She has multiple metastases to the skull. There is no evidence of brain metastasis or carcinomatous meningitis. The patient is fully awake and alert. I think probably she was under the influence of sedative and narcotic yesterday when she came into the emergency room. She is now overall feeling much better, and she wants to go home. I have discussed the case with the hospitalist, Dr. Crow. My recommendation is that the patient could be discharged to home. She does have a followup appointment with me next week, Thursday. Thank you for asking my opinion. MD RAPHAEL Rocha/dolores , 11:33 PM , 11:46 PM
== END 2018-12-08 13:42 | disposition home or self-care (01) ==
LOC: PHEDA 17:28 → PHED 17:28 → PH3 22:03
PROVIDERS: ADMIT Hospitalist; ATTEND Hospitalist
CPT/HCPCS: 70450; 70553; 71010; 71045; 80053; 81001; 82140; 82550; 83735; 84484; 85025; 93005; 96361; 96374; 99285; A9585; G0378; J2060; J7030